=== PATIENT | male | born 1995 | race African-American/Black ===

== ENCOUNTER 2020-12-06 11:45 | Emergency (ER) | payer BC ==
[2020-12-06 11:48] VITALS: BP 148/70; PULSE 91; TEMP 98.6; BMI 23.7
== END 2020-12-06 12:57 | disposition home or self-care (01) ==
LOC: JERFT 11:45
DX: S93.601A Unspecified sprain of right foot, initial encounter (principal)
CPT/HCPCS: 73630-TC-RT-FY; 99283-25

== ENCOUNTER 2020-12-21 06:28 | Emergency (ER) | payer BC ==
[2020-12-21 06:54] VITALS: BP 123/54; PULSE 65; TEMP 98.3; BMI 23.7
[2020-12-21] MEDS ORDERED: IBUPROFEN 400 MG TABLET (FP) PO ONE ×2 (07:57→08:07)
== END 2020-12-21 08:43 | disposition home or self-care (01) ==
LOC: JER 06:28
DX: J02.9 Acute pharyngitis, unspecified (principal)
CPT/HCPCS: 87880; 99283-25; C9803; U0003

== ENCOUNTER 2021-04-03 19:21 | Emergency (ER) | payer BC ==
[2021-04-03 19:44] VITALS: BP 124/68; PULSE 78; TEMP 98.5; BMI 21.9
[2021-04-03] MEDS ORDERED: AZITHROMYCIN 250 MG TABLET PO ONE (20:20)
[2021-04-03] MEDS ORDERED: AZITHROMYCIN 250 MG TABLET ONE (20:45)
[2021-04-03 23:05] LABS: EPI CELLS 2 /uL (0-25.1); HYALINE CASTS 37 /uL (0-3.1); PH,URINE 6.5 (5.0-8.0); URINE APPEARANCE TURBID; URINE BACTERIA 177 /uL (0-1359); URINE BILIRUBIN NEGATIVE (NEGATIVE); URINE COLOR DK YELLOW; URINE GLUCOSE (UA) NEGATIVE (NEGATIVE); URINE KETONE TRACE (NEGATIVE); URINE LEUK ESTERASE 3+ (NEGATIVE); URINE NITRITE NEGATIVE (NEGATIVE); URINE PROTEIN 1+ (NEGATIVE); URINE RBC 39 /uL (0-23.9); URINE WBC 15476 /uL (0-25.8)
[2021-04-03 23:18] LABS: HIV INTERPRETATION NEGATIVE (NEGATIVE)
[2021-04-04 04:52] LABS: URINE CRYSTALS MANY /hpf
== END 2021-04-03 21:51 | disposition home or self-care (01) ==
LOC: JERFT 19:21
DX: Z11.3 Encounter for screening for infections with a predominantly sexual mode of transmission (principal)
CPT/HCPCS: 36415; 81003; 86780; 87086; 87389; 87491; 87591; 99284-25

== ENCOUNTER 2022-02-17 02:41 | Emergency (ER) | payer BC, OTHER ==
[2022-02-17] MEDS ORDERED: KETOROLAC TROMETHAMINE 30 MG/1 ML VIAL IM ONE (03:29)
[2022-02-17 03:37] VITALS: BP 109/68; PULSE 79; TEMP 98.6; BMI 23.7
[2022-02-17] MEDS ORDERED: KETOROLAC TROMETHAMINE 30 MG/1 ML VIAL ONE (03:40)
== END 2022-02-17 04:49 | disposition home or self-care (01) ==
LOC: JER 02:41
PROC: 3E023GC Introduction of Other Therapeutic Substance into Muscle, Percutaneous Approach (ICD-10-PCS; principal; 2022-02-17)
DX: S96.911A Strain of unspecified muscle and tendon at ankle and foot level, right foot, initial encounter (principal); V49.50XA Passenger injured in collision with unspecified motor vehicles in traffic accident, initial encounter
CPT/HCPCS: 73610-TC-LT-FY; 73610-TC-RT-FY; 73630-TC-LT; 73630-TC-RT-FY; 99284-25